=== PATIENT | male | born 2000 | race Caucasian/White ===

== ENCOUNTER 2019-04-28 08:41 | Emergency (ER) | payer OTHER ==
[~2019-04-28] VITALS: Ht 172.7 cm; Wt 63.6 kg
[2019-04-28 08:52] VITALS: TEMP 98.7
[2019-04-28] MEDS ORDERED: NORCO 325 MG-7.1 TAB PO (10:12)
[2019-04-28] MEDS ORDERED: NORCO 325 MG-101 TAB PO (10:14)
[2019-04-28 11:27] VITALS: BP 131/74; PULSE 61
== END 2019-04-28 11:27 | disposition home or self-care (01) ==
LOC: COL.ER 08:41
DX: S52.182A Other fracture of upper end of left radius, initial encounter for closed fracture (principal); F17.210 Nicotine dependence, cigarettes, uncomplicated; Z88.1 Allergy status to other antibiotic agents; W11.XXXA Fall on and from ladder, initial encounter; Y92.59 Other trade areas as the place of occurrence of the external cause
CPT/HCPCS: J3010; J7030; Q4050